=== PATIENT | female | born 1995 | race Two or more races ===

== ENCOUNTER 2018-06-26 19:11 | Emergency (ER) | payer OTHER ==
[~2018-06-26] VITALS: Ht 180.3 cm; Wt 130.7 kg
[2018-06-26 19:30] VITALS: BP 177/92
== END 2018-06-26 20:23 | disposition home or self-care (01) ==
LOC: ED 20:15
DX: L03.115 Cellulitis of right lower limb (principal)
CPT/HCPCS: 99283